=== PATIENT | male | born 1985 | race Caucasian/White ===

== ENCOUNTER 2019-12-14 10:11 | Observation (INO) ==
[2019-12-14] MEDS ORDERED: Lidocaine -MPF 2% 2 ML VIAL ONE (15:52)
[2019-12-14] MEDS ORDERED: *HR* Propofol 200 MG/20 ML VIAL IVP ONE (15:52)
[2019-12-14] MEDS ORDERED: *HR* FentaNYL (PF) 100 MCG/2 ML VIAL ONE (15:52)
[2019-12-14] MEDS ORDERED: *HR* Midazolam HCl 2 MG/2 ML VIAL ONE (15:52)
[2019-12-14] MEDS ORDERED: *HR* Succinylcholine 200 MG/10 ML VIAL IVP ONE (15:52)
[2019-12-14] MEDS ORDERED: Ondansetron 4 MG/2 ML VIAL ONE (15:52)
[2019-12-14] MEDS ORDERED: Dexamethasone 4 MG/ML VIAL ONE (15:52)
[2019-12-14] MEDS ORDERED: ceFAZolin 2,000 MG in 0.9 % Sodium Chloride 100 ML IVPB ONE (15:56)
[2019-12-14] MEDS ORDERED: 0.9 % Sodium Chloride 1,000 ML IVC SCH (16:00)
[2019-12-14] MEDS ORDERED: Ondansetron 4 MG/2 ML VIAL IVP ONE (16:28)
[2019-12-14] MEDS ORDERED: *HR* HYDROmorphone PF 0.5 MG/0.5 ML SYRINGE IVP PRN (16:28)
[2019-12-14] MEDS ORDERED: *HR* OxyCODONE Immed Rel 5 MG TABLET PO PRN (16:28)
[2019-12-14] MEDS ORDERED: Acetaminophen IV 1,000 MG/100 ML INFUS..BTL ONE (16:38)
[2019-12-14] MEDS ORDERED: Ketorolac 30 MG/ML VIAL ONE (17:07)
[2019-12-14] MEDS ORDERED: Acetaminophen IV 1,000 MG/100 ML INFUS..BTL IVPB SCH (18:00)
[2019-12-14 21:38] VITALS: BP 120/74
[2019-12-15] MEDS ORDERED: Acetaminophen IV 1,000 MG/100 ML INFUS..BTL IVPB SCH
== END 2019-12-14 21:52 | disposition home or self-care (01) ==
LOC: 3ANU 10:11 → EMEROOARM 10:11 → 3ANU 14:01
PROVIDERS: ADMIT Surgery; ATTEND Surgery